=== PATIENT | female | born 1995 | race Hispanic/Latino ===

== ENCOUNTER → 2019-05-15 10:03 | Outpatient (CLI) | payer OTHER, SELFPAY ==
--- NOTE | 2019-05-15 10:07 | DI.US.S_ITS ---
PROCEDURE: US OB <= 14 WEEKS FETUS INDICATIONS: INITIAL US: DATING AND VIABILITY OUTSIDE/PRIOR DATING DATA: Last menstrual period (LMP): 02/27/19. LMP-based estimated date of delivery (SYDNI): 12/04/18. First dating scan (date and location): 05/15/19. Estimated date of delivery (SYDNI) from first dating scan: 12/03/18. TECHNIQUE: Real-time scanning was performed of the fetus and maternal pelvic organs, with image documentation. Endovaginal scanning was also performed to better visualize the fetus and maternal ovaries. COMPARISON: None. FINDINGS: Embryo: Wishram-rump length measures 4.4 cm corresponding to 11 weeks 1 day. Heart measures 173 beats per minute. Measurement variability in dating: +/- 4 weeks by LMP, +/- 7 days by mean sac diameter (use before 6 weeks gestation if crown-rump length not able to be measured), +/- 5 days by crown-rump length (up to 8 weeks 6 days gestation), +/- 7 days by crown-rump length (up to 13 weeks 6 days gestation). Maternal organs: Left corpus luteal cyst present in the right ovary is not visualized. . Limited images through the kidneys demonstrate no hydronephrosis. IMPRESSION: 11 week 1 day single living IUP. Dictated by: Jefry TINAJERO Interpreted: Gisselle Hayes MD on 05/15/2019 at 13:21 Approved by: Gisselle Hayes M.D. on 05/15/2019 at 14:01
== END ==
PROVIDERS: Visit Provider Specialist
DX: Z34.01 Encounter for supervision of normal first pregnancy, first trimester (principal); Z3A.11 11 weeks gestation of pregnancy
CPT/HCPCS: 76801

== ENCOUNTER → 2019-05-15 13:20 | Outpatient (CLI) | payer OTHER, SELFPAY ==
[2019-05-15 13:46] LABS: Add Manual Diff / Slide Review NO; Appearance Urine UA CLEAR; Basophils Absolute Auto 0 /uL (0-100); Basophils Percent Auto 0.1 % (0-2); Bilirubin Urine UA NEGATIVE (NEGATIVE); Color Urine UA YELLOW; Eosinophils Absolute Auto 100 /uL (0-450); Eosinophils Percent Auto 0.6 % (2-4); Glucose Urine UA NEGATIVE (Negative); Hemoglobin 12.6 g/dL (12.0-16.0); Ketones Urine UA NEGATIVE (NEGATIVE); Leukocyte Esterase Urine UA TRACE (NEGATIVE); Lymphocytes Absolute Auto 1900 /uL (1100-4500); Lymphocytes Percent Auto 20.8 % (25-40); Mean Corpuscular HGB Conc 34.9 % (30-36); Mean Corpuscular Hemoglobin 30.6 PG (26-34); Mean Corpuscular Volume 87.7 fL (80-100); Monocytes Absolute Auto 500 /uL (0-900); Monocytes Percent Auto 5.9 % (3-14); Neutrophils Absolute Auto 6600 /uL (1500-7000); Neutrophils Percent Auto 72.6 % (50-75); Nitrite Urine UA NEGATIVE (Negative); Occult Blood Urine UA NEGATIVE (Negative); Platelet Count 242 X10^3/uL (150-400); Protein Urine UA NEGATIVE (Negative); Red Blood Cell Count 4.11 X10^6/uL (4.0-5.2); Red Cell Distribution Width 12.3 % (11.6-14.8); Urobilinogen Urine UA 0.2 E.U./dL (0.2)
[2019-05-15 14:47] LABS: Bacteria Urine Occasional (0-1); RBC Urine None Seen (0-5/HPF); WBC Urine 1-5/HPF (0-5/HPF)
[2019-05-15 14:48] LABS: Amorphous Sediment Urine 1+; Squamous Epithelial Cell Urine 1-5 /HPF (0-5/HPF)
[2019-05-15 18:49] LABS: Hepatitis B Surface Antigen NEGATIVE s/c (NEGATIVE)
[2019-05-15 19:13] LABS: HIV 1 and 2 Antibody NEGATIVE (NEGATIVE); Hep C Virus Ab w/Reflex Quant NEGATIVE s/c (NEGATIVE)
[2019-05-18 15:14] LABS: RPR Screen Nonreactive (Nonreactive)
== END ==
PROVIDERS: PCP Nurse Practitioner Family; Visit Provider Specialist
DX: Z34.91 Encounter for supervision of normal pregnancy, unspecified, first trimester (principal)
CPT/HCPCS: 36415; 76801; 80055; 81003; 81015; 86703; 86787; 86803; 86850; 86900; 86901; 87086

== ENCOUNTER → 2019-07-06 15:03 | Outpatient (CLI) | payer OTHER, SELFPAY | PROVIDERS: PCP Nurse Practitioner Family; Visit Provider Specialist | DX: Z34.82 Encounter for supervision of other normal pregnancy, second trimester (principal) | CPT/HCPCS: 36415; 82105; 82677; 84702; 86336 ==

== ENCOUNTER → 2019-07-17 09:55 | Outpatient (CLI) | payer OTHER, SELFPAY ==
--- NOTE | 2019-07-17 09:57 | DI.US.S_ITS ---
PROCEDURE: US OB >= 14 WEEKS FETUS INDICATIONS: ANATOMY OUTSIDE/PRIOR DATING DATA: Last menstrual period (LMP): 02/27/19. LMP-based estimated date of delivery (SYDNI): 12/04/18. First dating scan (date and location): 05/15/19. Estimated date of delivery (SYDNI) from first dating scan: 12/03/18. TECHNIQUE: Real-time scanning was performed of the fetus, with image documentation and biometric measurements. Endovaginal scanning: No COMPARISON: None. FINDINGS: General: A single living intrauterine gestation is present. Presentation: Breech. Placenta: Placental position is posterior, without previa. Amniotic fluid index: 15.9 cm, normal range is 5-24 cm. heart rate: 160 beats per minute. Maternal cervical canal: 3.2 cm long. Normal lower limit is 2.5 cm. biometrics: Biparietal diameter: 20 weeks 2 days Head circumference: 20 weeks 3 days Abdominal circumference: 19 weeks 6 days Femur length: 20 weeks 3 days Estimated gestational age from initial scan: 20 weeks 1 day Composite gestational age from present scan: 20 weeks 2 days Estimated weight and percentile: 335 g; 45th percentile Measurement variability for biometric dating: +/- 7 days from 14 weeks to 15 weeks 6 days gestation, +/- 10 days from 16 weeks to 21 weeks 6 days gestation, +/- 2 weeks from 22 weeks to 27 weeks 6 days gestation, +/- 3 weeks for 28 weeks gestation or later. weight reference: 4500 g or EFW >90/95% is considered macrosomia or large for gestational age. EFW <10% is small for gestational age. EFW 5% or less is considered intra-uterine growth restriction. Anatomic survey: Neuro: Ventricles are non-dilated at less than 10 mm. Cisterna magna is normal at 3-11 mm. Cerebellum is normal in size and morphology. Nuchal skin fold: Normal at less than 6 mm between 14-21 weeks gestational age. Face: Nose and lips, facial profile are normal. Spine: No evidence for spina bifida. Heart: 4-chambered heart is present, with normal ventricular outflow tracts. Diaphragm: Diaphragm is intact. Stomach: Left-sided stomach is present. Kidneys: Renal pelves prominent bilaterally, measuring 4.0 mm on the right and 4.2 mm on the left Cord: 3-vessel cord has orthotopic insertion. Bladder: Normal in size. Extremities: All 4 extremities identified. IMPRESSION: 1. Single living IUP redemonstrated and interval growth is normal. 2. Prominent renal pelves bilaterally. Followup recommended. Dictated by: Jefry TINAJERO Interpreted: Gisselle Hayes MD on 07/17/2019 at 11:26 Approved by: Gisselle Hayes M.D. on 07/17/2019 at 15:59
== END ==
PROVIDERS: PCP Nurse Practitioner Family; Visit Provider Specialist
DX: Z36.89 Encounter for other specified antenatal screening (principal); Z3A.20 20 weeks gestation of pregnancy
CPT/HCPCS: 76811

== ENCOUNTER → 2019-09-03 08:38 | Outpatient (CLI) | payer OTHER, SELFPAY ==
[2019-09-03 12:13] LABS: Hematocrit 33.4 % (36-46); Hemoglobin 11.6 g/dL (12.0-16.0)
[2019-09-03 12:54] LABS: GTT (PREG) 1 Hour PP 50gm Dose 94 mg/dL (76-139)
== END ==
PROVIDERS: PCP Nurse Practitioner Family; Visit Provider Specialist
DX: Z34.82 Encounter for supervision of other normal pregnancy, second trimester (principal); Z3A.24 24 weeks gestation of pregnancy
CPT/HCPCS: 36415; 82950; 85014; 85018

== ENCOUNTER 2019-09-25 22:25 | Inpatient (IN) | payer OTHER, SELFPAY ==
--- NOTE | 2019-09-25 22:46 | DI.US.S_ITS ---
PROCEDURE: US OB LIMITED INDICATIONS: PREMATURE RUPTURE OF MEMBRANES OUTSIDE/PRIOR DATING DATA: Last menstrual period (LMP): 02/27/19. LMP-based estimated date of delivery (SYDNI): 12/04/18. First dating scan (date and location): 05/15/19. Estimated date of delivery (SYDNI) from first dating scan: 12/03/18. TECHNIQUE: Real-time scanning was performed of the fetus, with image documentation. COMPARISON: [facility], OB >= 14 WEEKS FETUS, 09/03/2019, 8:25. [facility] OB >= 14 WEEKS FETUS, 07/17/2019, 10:12. [facility], OB >= 14 WEEKS FETUS, 07/06/2019, 14:50. [facility], OB <= 14 WEEKS FETUS, 06/01/2019, 15:59. [facility], OB <= 14 WEEKS FETUS, 05/15/2019, 10:21. FINDINGS: A single living intrauterine gestation is present. Presentation: Vertex. Placenta: Placental position is posterior, without previa. Amniotic fluid index: 7.3 cm, normal range is 5-24 cm. heart rate: 160 beats per minute. Maternal cervical canal: 2.5 cm long. Normal lower limit is 2.5 cm. Estimated gestational age from initial scan: 30 weeks zero days compared to 30 weeks 5 days from today's exam. CRL: 8.0 cm 31 weeks 6 days BPD: 28.3 cm 31 weeks zero days HC: 25.2 cm 29 weeks 3 days FL: 5.9 cm 30 weeks 4 days. BPP: Tone: 2 Movement: 2 Respiration: 0 Largest Pocket: 2 IMPRESSION: 1. Single live intrauterine without evidence of previa or abruption. 2. EZEKIEL is 7.3 cm. 3. BPP 6/8. The above findings are concordant with preliminary report. Dictated by: Gisselle Hayes M.D. on 09/26/2019 at 9:27 Approved by: Gisselle Hayes M.D. on 09/26/2019 at 9:59
[2019-09-25] MEDS: BETAMETHASONE 30 MG/5 ML MDV 12 MG IM (23:09)
--- NOTE | 2019-09-25 23:11 | PM.OBHP.1 ---
OB HPI Date/Time Date of admission: 09/25/19 Date Patient Seen: 09/25/19 Time Patient Seen: 22:30 History of Present Condition Chief complaint: observation of labor : 2 Para: 0 Estimated Date of Delivery: 12/04/19 Estimated Gestational Age (weeks): 30 Narrative: Viola Arambula is a 24 year old @30+1 dated by 11 wk US c/w LMP, presenting to L&D after PPROM at 21:30 on 09/25. The patient reports that she was lying in bed when she felt a gush of clear fluid, followed by ongoing copious leaking and a sensation of intermittent suprapubic pressure. She reports normal movement, denies vaginal bleeding, and denies fevers, chills, abdominal pain, dysuria or other UTI symptoms, chest pain, FLORES, visual changes, or any other symptoms obstetric or otherwise. Per patients and records review, patient has had a largely uncomplicated with normal routine follow up and a negative quad screen, though she has been followed for prominent renal pelvises bilaterally. 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 She denies any other medical, surgical, or family history, and denies toxic habits. History of Present care: good care Dating criteria: LMP confirmed by 1st trimester US Preadmission Labs Blood type: B (+) positive -: Antibody screen: negative, HBsAG: negative, HIV: negative and RPR/VDLR: negative Quad screen: Normal 1 hr GTT: 94 Prior (ies) History: 03/03/17: 5 week medical induced , uncomplicated. Evaluation Evaluation Baseline heart rate: 155 Variability: Average (6-10) monitor accelerations: Present monitor decelerations: Variable Contraction Frequency (minutes): 2 Category of Tracing: II Comments: Bedside ultrasound performed: EFW 1510g, 40% Cephalic presentation, posterior placenta, EZEKIEL 7.3 BPP 6/8, -2 for breathing Cervix 2.5cm on [facility] Medical History (Updated 09/25/19 @ 23:29 by Nataliya Zamarripa MD) (Acute) Chlamydia (Acute) Meds Home Medications and Allergies Home Medications Medication Instructions Recorded Confirmed Type prenat.vits,petar,xwi-fwfo-sndig 1 tab PO DAILY 05/15/19 09/25/19 History Allergies Allergy/AdvReac Type Severity Reaction Status Date / Time No Known Drug Allergies Allergy Verified 09/25/19 22:44 Review of Systems Constitutional Constitutional: Reports system reviewed and no additional complaints, except as documented ENT Ears, Nose, Mouth, and Throat: Yes system reviewed; no additional complaints, except as documented Cardiovascular Cardiovascular: Reports system reviewed; no additional complaints, except as documented Respiratory Respiratory: Reports system reviewed and no additional complaints, except as documented Gastrointestinal Gastrointestinal: Reports system reviewed and no additional complaints, except as documented Genitourinary Genitourinary: Reports as per HPI Musculoskeletal Musculoskeletal: Reports system reviewed; no additional complaints, except as documented Neurologic Neurologic: Reports system reviewed and no additional complaints, except as documented Exam Vital Signs (past 8 hours): 125/71, HR 101, T 96.5F Narrative Exam Narrative: Patient presented to L&D with saturated towel between legs. Const General: cooperative, healthy appearing and well developed Orientation: alert, awake and oriented x3 Resp Effort & Inspection: normal respiratory effort Auscultation: clear to auscultation bilaterally Cardio Rate: regular rate Rhythm: regular rhythm GI Palpation: soft and No tender Skin General: no rashes or lesions noted Objective Labs Result Diagrams: 09/25/19 22:50 Labs: GBS, T&S, Urine culture/U tox pending. Ultrasound report pending. Assessment and Plan Assessment and Plan Assessment and Plan narrative: This patient presents to L&D with PPROM, grossly ruptured for clear fluid at 30+1. The patient's elevated WBC count on admission increases suspicion for intraamniotic infection, though the patient has no clinical signs of infection at this time. Though she is [place] on toco, she is not feeling contractions and has a 2.5 cm cervix, and her likely stands to benefit significantly from delivery at a hospital with a NICU. We discussed risks and benefits of transfer, chiefly the risk of delivery en route, and the patient and her partner vocalized understanding and want to proceed with the transfer. The patient will be transferred to L&D at the [facility], under the care of Dr. Shea. - 12 mg IM betamethasone administered at 2300 on 09/25/19 - 4 g loading dose magnesium sulfate administered prior to transfer, planned for 2g/hr maintenance - Patient s/p 1g azithromycin PO, for 2g ampicillin IV prior to transfer (plan for q6 x48 hrs) - GBS collected and sent prior to administration of antibiotics - CBC, T&S collected and sent - Urine culture/U tox to be sent if patient voids prior to transfer - LR@ 125ccs/hr - Bedside ultrasound performed as noted, formal report pending
[2019-09-25 23:14] LABS: Add Manual Diff / Slide Review NO; Basophils Absolute Auto 0 /uL (0-100); Basophils Percent Auto 0.1 % (0-2); Eosinophils Absolute Auto 100 /uL (0-450); Eosinophils Percent Auto 0.8 % (2-4); Hematocrit 33.6 % (36-46); Hemoglobin 11.6 g/dL (12.0-16.0); Lymphocytes Absolute Auto 2200 /uL (1100-4500); Lymphocytes Percent Auto 13.4 % (25-40); Mean Corpuscular HGB Conc 34.6 % (30-36); Mean Corpuscular Hemoglobin 31.7 PG (26-34); Mean Corpuscular Volume 91.6 fL (80-100); Monocytes Absolute Auto 1400 /uL (0-900); Monocytes Percent Auto 8.6 % (3-14); Neutrophils Absolute Auto 12800 /uL (1500-7000); Neutrophils Percent Auto 77.1 % (50-75); Platelet Count 235 X10^3/uL (150-400); Red Blood Cell Count 3.67 X10^6/uL (4.0-5.2); Red Cell Distribution Width 12.2 % (11.6-14.8); White Blood Cell Count 16.6 X10^3/uL (4.5-11.0)
[2019-09-25] MEDS: AMPICILLIN 2,000 MG in SODIUM CHLORIDE 0.9% 100 ML 200 ML IV (23:50)
[2019-09-25] MEDS: AZITHROMYCIN 250 MG TABLET 1000 MG PO (23:54)
[2019-09-26] MEDS: MAGNESIUM SULFATE 4 GM/100 ML PIGGYBACK IV (00:05)
[2019-09-26] MEDS: MAGNESIUM SULFATE 20 GM/500 ML IV.SOLN IV (00:14)
[2019-09-26] MEDS: LACTATED RINGERS 1,000 ML 1000 ML IV (00:31)
[2019-09-26 00:57] LABS: Strep Grp B PCR NEG for Grp B Strep
== END 2019-09-26 00:15 | disposition short-term general hospital (02) | DRG 833 ==
PROVIDERS: Admitting Provider Obstetrics & Gynecology; PCP Nurse Practitioner Family; Visit Provider Obstetrics & Gynecology
DX: O42.013 Preterm premature rupture of membranes, onset of labor within 24 hours of rupture, third trimester (principal); Z3A.30 30 weeks gestation of pregnancy
CPT/HCPCS: 59025; 59050; 76815; 76819; 84112; 85025; 86850; 86900; 86901; 87653; 96372; 99222; G0378; G0379; J0290; J0702; J3475